=== PATIENT | male | born 1945 | race African-American/Black ===

== ENCOUNTER → 2016-10-22 | Outpatient (CLI) | payer OTHER, MEDICARE ==
[~2016-10-22] VITALS: Ht 180.3 cm; Wt 85.1 kg
[~2016-10-22] MED LIST: ALEVE220 MG PO; ANTIVERT25 MG PO; APAP650 PO; ASPIR 8181 MG PO; ASPIRIN81 M2 PO; ATORVASTATIN CA40 MG PO; CARVEDILOL12.5 MG PO; CLONAZEPAM 0.50.5 M1 PO; COREG CR40 MG PO; DICLOFENAC SODI75 MG PO; FIBER500 MG PO; FISH OIL 1,0001 EAC5 PO; FISH OIL 1,001000 M2 PO; GRALISE600 MG PO; HYDROCODON-ACE1 EAC5 PO; HYDROCODON-ACE1 EAC7; HYDROCODONE-AP1 EAC6 PO; LISINOPRIL20 MG PO; MOBIC7.5 MG PO; NABUMETONE 500500 M1 PO; PERCOCET 10-321 EACH PO; ROXICODONE5 MG PO; SIMVASTATIN40 MG PO; TAMSULOSIN HCL0.4 M1 PO; VALIUM10 MG PO; VALIUM2 MG PO; VITAMIN D3400 UNIT PO; XARELTO20 MG PO; [UNRECOGNIZED DRUG - REMARK]
--- NOTE | ~2016-10-22 | HPC ---
[facility] [place] [address] PAIN MANAGEMENT CONSULTATION Name: ALEC REDDY Room #: REG [facility].#: [id number] Admission: 10/22/16 Attend Phys: Darren Noonan DO Discharge: Date of : 47 Report #: [id number] THIS REPORT FOR: //name// CC: Darren Harris DO DATE OF SERVICE: 10/22/2016 DATE OF SERVICE: 10/22/2016 CHIEF COMPLAINT: Bilateral chronic groin pain. HISTORY OF PRESENT ILLNESS: As you know, patient is a very pleasant 71-year-old male, who has returned today in followup visit with continued bilateral groin pain. The patient has an appointment with Neurology today for which they are going to review an MRI. This MRI is unavailable to us at this time. We have attempted to try to gain access to this MRI, but have been advised is not available. The patient is placing pain score at 2/10. States the pain is chronic in nature. He is experiencing some numbness in the bilateral groin. His pain is exacerbated with activities, improves with medications, sleeping with pillow between his knees. Otherwise, no change in his medical history today. He returns today in followup visit for medication management in preparation for possible more aggressive treatments depending on the findings on the MRI. ALLERGIES: No known drug allergies. CURRENT MEDICATIONS: Hydrocodone, Tylenol, omega-3 fish oil, Xarelto, atorvastatin, carvedilol, cholecalciferol, lisinopril. SOCIAL HISTORY: The patient denies tobacco, alcohol or IV illicit drug use. He is accompanied by his , who is present here in the room. PHYSICAL EXAMINATION: VITAL SIGNS: Blood pressure 123/79, pulse 81, respiratory rate 16, unlabored, 98% on room air. Height 5 feet 11 inches tall, weight 197.6 pounds, BMI calculated 26.2. GENERAL: Well developed, well nourished, well hydrated, 71-year-old male. He appears stated age, placing current pain score 2/10. HEENT: Normocephalic, atraumatic. Pupils equal, round, reactive to light. Extraocular muscles are intact. Sclerae nonicteric without injection. NEUROLOGIC: Cranial nerves 2-12 grossly intact. LUNGS: Clear. No wheeze, rhonchi or rales. CARDIOVASCULAR: Regular. No appreciable gallop or rub. ABDOMEN: Soft, nontender, nondistended, normoactive bowel sounds. [facility] [address] [place] [address] PAIN MANAGEMENT CONSULTATION Name: ALEC REDDY Room #: REG [facility]#: [id number] Admission: 10/22/16 Attend Phys: Darren Noonan DO Discharge: Date of : 47 Report #: [id number] EXTREMITIES: Show no clubbing, no cyanosis, no edema. MUSCULOSKELETAL: There again remains palpatory tenderness over the pubic symphysis and distribution of the ilioinguinal genitofemoral nerves bilaterally. Seated straight leg raising negative. Supine straight leg raising positive for right groin pain. Gait slightly antalgic. Patient is forward flexed lumbar spine in standing position, loss of lordotic curvature. ASSESSMENT: 1. Chronic bilateral pelvic pain. 2. Bilateral inguinal pain. 3. Iliohypogastric neuralgia. 4. Genitofemoral neuralgia. 5. Probable lumbar spinal stenosis. PLAN: 1. The patient has returned today in followup visit where we have discussed at length the ongoing pain he is experiencing. It appears that the patient is suffering from bilateral inguinal paresthesias. Possibility would be that the patient is suffering from a spinal stenosis in the upper lumbar lower thoracic area that is leading to his symptoms. At present, we do not have the recent MRI. Apparently, this was done recently, but we are unable to access this MRI information at this time. The patient does have an appointment with his neurologist today for which they are going to review the findings. We will hopefully see these findings soon and we can also review the information. I am concerned of a spinal stenosis in the upper lumbar region that may have led the symptoms. There is also a possibility of bilateral inguinal pain due to pelvic unleveling. This may also be assessed with this imaging study. I will await the findings of the MRI before moving forward with interventional treatments such as epidural injections and surgical options. 2. The patient was provided refill prescription of his oxycodone. He does find this helpful for pain control. He was given #5 mg tablets 1 to take every 8 hours p.r.n. for pain, I have given the patient #60, 1 month worth of medication. 3. The patient was provided samples of Gralise. He will start the medication at 600 mg as he is currently on with gabapentin, then escalate as tolerated to higher levels depending on efficacy. The patient was advised that this medication can cause similar side effects, as he is seen with the immediate release gabapentin, sleepiness, disorientation, confusion. If he notes these side effects, contact our clinic. Otherwise, continue the titration as directed. We have provided the Gralise in response to the side effects he was experiencing with the immediate release formulation of gabapentin. We are hopeful he can tolerate this medication more effectively and reduce his neuropathic pain. 4. We will see the patient back in followup visit once he has had a chance to discuss his case with neurology. We will review the findings of the MRI once they are available and contact the clinic if changes in therapy are warranted. [facility] [address] [place] [address] PAIN MANAGEMENT CONSULTATION Name: BARRYALEC Philomena MOREIRA Room #: REG [facility].#: [id number] Admission: 10/22/16 Attend Phys: Darren Noonan DO Discharge: Date of : 47 Report #: [id number] 5. We will see the patient back in followup visit within 30 days, as we will need to continue medication therapy and discussed his treatment options at that juncture. <ELECTRONICALLY SIGNED> By: Darren Noonan DO 10/29/16 0832 0651 0735 Darren Noonan DO /nt
[2016-10-22 08:59] VITALS: BP 123/79
== END | disposition home or self-care (01) ==
LOC: PAIN 10-07 07:11
DX: R10.2 Pelvic and perineal pain (principal); G58.8 Other specified mononeuropathies; G89.29 Other chronic pain; Z87.891 Personal history of nicotine dependence

== ENCOUNTER → 2016-11-04 | Outpatient (CLI) | payer OTHER, MEDICARE ==
[~2016-11-04] VITALS: Ht 180.3 cm; Wt 85.5 kg
--- NOTE | ~2016-11-04 | HPC ---
[facility] [place] [address] PAIN MANAGEMENT CONSULTATION Name: ALEC REDDY JR [id number] Admission: 11/04/16 Attend Phys: Darren Noonan DO Discharge: Date of : 47 Report #: [id number] THIS REPORT FOR: //name// CC: Darren Harris DATE OF SERVICE: 11/04/2016 CHIEF COMPLAINT: Bilateral chronic groin pain, anterior thigh pain. HISTORY OF PRESENT ILLNESS: As you know, patient is a 71-year-old male who returns today in followup visit having received MRI of lumbar spine with his neurologist. Neurology has indicated to the patient that treatment options or surgery or "living with it." No options were provided from a medication standpoint. He returns today in followup visit stating he has also seen orthopedic surgery who advised the patient that his arthritic changes in the hips are "not that severe." They suggested possible injections, though they were not too concerned with the amount of arthritic changes that were present on the x-ray. He returns today in followup visit continuing to discuss some allodynia and neuropathic pain not only involving the inguinal area, but also the anterior thighs. We reviewed the MRI with the patient and the findings are such that the patient is suffering from severe spinal stenosis at L2-L3 level, which could correlate with the patient's findings on physical exam and history he has provided. We had discussed with the patient the treatment options in the past. He returns to discuss these again today. The findings of the MRI have assisted us in directing our treatment more effectively. ALLERGIES: No known drug allergies. CURRENT MEDICATIONS: Hydrocodone, Tylenol, [place] 3 fish oil, Xarelto, atorvastatin, carvedilol, cholecalciferol, lisinopril. SOCIAL HISTORY: The patient denies tobacco, alcohol or IV illicit drug use. He is retired. He is present with his . IMAGING: MRI of the lumbar spine obtained on 10/16/2016 shows T12-L1 unremarkable L1-L2, no significant central canal stenosis, mild bilateral foraminal stenosis L2-L3. Moderate prospect broad-based disk bulge posterior osteophyte complex, bilateral uncovertebral and facet hypertrophy, ligamentum flavum hypertrophy resulting in severe spinal stenosis. Moderate bilateral neural foraminal stenosis L3-L4, mild broad-based disk bulge, bilateral facet arthrosis, ligamentum flavum hypertrophy, moderate central canal stenosis, moderate bilateral foraminal stenosis L4-L5, moderate bilateral uncovertebral and facet arthrosis, ligamentum flavum hypertrophy, mild spinal canal stenosis, moderate bilateral neural foraminal stenosis. L5-S1, mild changes of the ligamentum flavum and arthritis [place] [address] PAIN MANAGEMENT CONSULTATION Name: ALEC REDDY JR Room #: REG [facility]#: [id number] Admission: 11/04/16 Attend Phys: Darren Noonan DO Discharge: Date of : 47 Report #: [id number] PHYSICAL EXAMINATION: VITAL SIGNS: Blood pressure 109/76, pulse is 80, respiratory rate 14, unlabored, patient 99% on room air. Height 5 feet 11 inches tall, weighs 188.4 pounds. BMI calculated 36.8. GENERAL: Well developed, well nourished, well hydrated 71-year-old male appearing his stated age. He is placing current pain score 3/10. HEENT: Normocephalic, atraumatic. Pupils equal, round, reactive to light. Extraocular muscles are intact. Sclerae nonicteric, without injection. EXTREMITIES: Show no clubbing, no cyanosis, no edema. MUSCULOSKELETAL: Palpatory tenderness over the pubic symphysis and distribution of the ilioinguinal and genitofemoral nerves noted. Seated straight leg raising negative. Supine straight leg raising positive for right groin pain. Gait is antalgic, stance is highly forward flexed to the lumbar spine, loss of lordotic curvature. Muscle bulk and tone equal and symmetrical in the lower extremities. Pain is not elicited with standing. ASSESSMENT: 1. Symptomatic lumbar radiculopathy. 2. Spinal stenosis of the lumbar spine. 3. Displacement of lumbar intervertebral disk with radiculopathy. 4. Lumbosacral spondylosis with radiculopathy. 5. Degeneration of lumbar spine. 6. Ilioinguinal, iliohypogastric nerve neuralgia. 7. Chronic intractable pain. PLAN: 1. The patient has returned today in followup visit having seen Neurology as well as Orthopedics since our last visit. Orthopedics have taken x-rays of the bilateral hips and noticed some mild changes in the joints themselves, but no specific clear etiology for his pain. It was noted that the patient suffers no increase in pain with standing and weightbearing, which would correlate more with a low back problem and less with an arthritic joint problem. There is a possibility he is suffering from bilateral labral tears, though this would be extremely rare given the fact the patient has not had any hip injuries and the hips shows little or no arthritic changes. They have offered the possibility of injections into the joints, but were not specific on whether or not these would be helpful. In regards to the Neurology team, they have evaluated the patient, indicated that no specific treatment that they hand would decrease the patient's pain. They did indicate to the patient that surgery options may be available, but did not offer any idea of who might be able to handle that surgery and what kind of surgery. Other options were "to live with it." The patient returns today in followup visit to discuss some of the findings that we had seen on MRI. Our concern is that his symptoms are related to his spinal stenosis at the L2-L3 level. This would correlate with his pain distribution though unusual would not be something that could not be seen with a stenosis at the level he is [facility] [address] [place] [address] PAIN MANAGEMENT CONSULTATION Name: ALEC REDDY JR Room #: [facility].#: [id number] Admission: 11/04/16 Attend Phys: Darren Noonan DO Discharge: Date of : 47 Report #: [id number] currently experiencing symptoms at. We also discussed the possibility of intraarticular hip pathology, though this is fairly low on our differential. It is interesting to note that the patient did report good improvement in symptoms with gabapentin, which would indicate more of a neuropathic problem than with arthritic problem. After our very long discussion, the patient and I chose to trial once again an epidural injection under fluoroscopic guidance, this being placed at the level of stenosis. We discussed with the patient the risks and benefits of the procedure. He states he understood and wished to proceed. 2. The patient is to remain on his GRALISE therapy. We have given him samples of the GRALISE to continue for the next two weeks, this will allow us a chance to review efficacy of an injection placed at the stenosis positioning. 3. The patient will return to our clinic in 2 weeks. We will review efficacy of medications and the injection today and determine if options from surgical standpoint or even a spinal cord stimulator may be beneficial. PROCEDURE NOTE DESCRIPTION OF PROCEDURE: Lumbar epidural steroid injection under fluoroscopic guidance. After obtaining written consent, the patient was taken back to fluoroscopy suite, placed in prone position with pillow under abdomen to decrease lumbar lordosis. Skin overlying the lumbosacral area prepped and draped in aseptic fashion. The L3-L4 interspace was identified by AP fluoroscopy. Skin and subcutaneous tissue overlying the target site of injection was then anesthetized with 3 mL of 1% lidocaine. A 20-gauge 3-1/2 inch Tuohy needle was advanced under fluoroscopic guidance towards the epidural space using a paramedian approach. Epidural space was identified using loss of resistance to air technique. After negative aspiration for heme or cerebrospinal fluid, 1 mL of Omnipaque was injected. Lumbar epidurogram was confirmed using both AP and lateral fluoroscopy. After negative aspiration for heme or cerebrospinal fluid, 5 mL of a solution containing 2 mL 40 mg per mL, 80 mg total of triamcinolone, 3 mL lidocaine 1% injected slowly. Needle retracted approximately senior care, needle tract flushed 3 mL 1% lidocaine. Needle then removed. Sterile bandage placed over injection site. No new motor deficits present in lower extremity following procedure. The patient tolerated the procedure well, carefully escorted to recovery room in stable condition. No apparent complications. After meeting discharge criteria, the patient discharged home. [address] [address] PAIN MANAGEMENT CONSULTATION Name: ALEC REDDY JR Room #: REG [facility]#: [id number] Admission: 11/04/16 Attend Phys: Darren Noonan DO Discharge: Date of : 47 Report #: [id number] cc: Referring Physician <ELECTRONICALLY SIGNED> By: Darren Noonan DO 11/05/16 0743 1519 1636 Darren Noonan DO /nt
[2016-11-04 12:55] VITALS: BP 109/76
== END ==
LOC: PAIN 07:25
DX: M47.27 Other spondylosis with radiculopathy, lumbosacral region (principal); M48.06 Spinal stenosis, lumbar region; M51.16 Intervertebral disc disorders with radiculopathy, lumbar region; G89.29 Other chronic pain; I10 Essential (primary) hypertension; Z87.891 Personal history of nicotine dependence

== ENCOUNTER → 2017-01-21 | Outpatient (CLI) | payer OTHER, MEDICARE ==
[~2017-01-21] VITALS: Ht 180.3 cm; Wt 83.9 kg
[~2017-01-21] MED LIST changes: +KEFLEX500 MG PO; +RESTORIL15 MG PO
--- NOTE | ~2017-01-21 | HPC ---
[facility] [place] [address] PAIN MANAGEMENT CONSULTATION Name: BARRYALEC Quach Room #: REG [facility].#: [id number] Admission: 01/21/17 Attend Phys: Darren Noonan DO Discharge: Date of : 47 Report #: [id number] THIS REPORT FOR: //name// CC: Darren Harris DO DATE OF SERVICE: 01/21/2017 REFERRING PHYSICIAN: Dr. Garth Harris. CHIEF COMPLAINT: Chronic bilateral groin pain, right inguinal pain, and anterior thigh pain. HISTORY OF PRESENT ILLNESS: As you know, the patient is an extremely pleasant 71-year-old male with longstanding history of bilateral groin pain, right inguinal mass, and anterior thigh pain. The patient has been diagnosed with bilateral sports hernias for which he is planning to undergo surgery with Dr. Hector Castellanos. Unfortunately, during the evaluation for this surgery, it was found the patient also had an abscess in the perineal area. He has begun treatment for this abscess, and this needs to be resolved before he can move forward with the treatment for his bilateral sports hernias. He returns today in followup visit reporting a pain score of 4/10. States his pain is sore, spasming, and burning, exacerbated with walking, standing, bending, lifting, and sitting, improves with repositioning and medications. He has returned today for medication management until which time, he is able to undergo the proposed surgery. ALLERGIES: No known drug allergies. CURRENT MEDICATIONS: Temazepam, cephalexin, diazepam, oxycodone, gabapentin, omega 3 fish oil, Xarelto, atorvastatin, carvedilol, cholecalciferol, and lisinopril. SOCIAL HISTORY: The patient denies tobacco, alcohol, IV or illicit drug use. He is accompanied by his . He is retired. He is not in litigation in regards to pain. PHYSICAL EXAMINATION: VITAL SIGNS: Blood pressure 114/68, pulse 69, respiratory rate 16, unlabored. The patient is 100% on room air. Height 5 feet 11 inches tall, weight 185 pounds, BMI calculated 25.8. GENERAL: Well-developed, well-nourished, and well-hydrated. A 71-year-old male appearing his stated age, placing current pain score at 4/10. HEENT: Normocephalic and atraumatic. Pupils are equal, round, [place] [address] PAIN MANAGEMENT CONSULTATION Name: BARRYALEC Room #: REG [facility]#: [id number] Admission: 01/21/17 Attend Phys: Darren Noonan DO Discharge: Date of : 47 Report #: [id number] EXTREMITIES: Show no clubbing, no cyanosis, no edema. MUSCULOSKELETAL: Palpatory tenderness remains over the inguinal area, directly over the pubic bone. Deep palpation of the area causes intensification of pain. There is a noted right inguinal "mass". This is unchanged from previous evaluation. The patient has a forward flexed stance of the lumbar spine due to increasing pain. ASSESSMENT: 1. Bilateral sports hernia. 2. Severe spinal stenosis of the lumbar spine. 3. Chronic intractable pain. 4. Perineal abscess. PLAN: 1. The patient has returned today in followup visit indicating he has been evaluated by surgery for his bilateral sports hernias. Unfortunately, the patient cannot undergo the treatment for his bilateral sports hernia until which time his abscess that was found incidentally in the perineal area has resolved. He has been started on antibiotics, and they are packing the recently lanced abscess. The patient reports pain in the perineal area, but this is beginning to improve. The patient will have to complete treatment for his abscess before we can move forward with surgical options for the bilateral sports hernia. This is being monitored by his general surgeon, Dr. Hector Castellanos. He has returned today in followup visit requesting medication management, as we await surgical option. 2. The patient was provided a prescription of Percocet 10/325. He may have one tab every 3 hours p.r.n. for pain. He was given #180 with releases of today and 4 weeks from today. The patient was advised to take this medication only as directed, not to use more than 6 tablets in any given day. We will reduce these medications once he has undergone surgery for his bilateral hernias, and then wean off the opioids entirely as quickly as possible. 3. We will see the patient back in followup visit in 2 months, if he has not yet undergone surgery. Otherwise, we will see him post-surgery where we can help wean off opioids as tolerated. <ELECTRONICALLY SIGNED> By: Darren Noonan DO 01/27/17 1602 0712 1150 Darren Noonan DO /nt
[2017-01-21 09:54] VITALS: BP 114/68
== END ==
LOC: PAIN 07:31
DX: K40.90 Unilateral inguinal hernia, without obstruction or gangrene, not specified as recurrent (principal); M48.06 Spinal stenosis, lumbar region; L02.215 Cutaneous abscess of perineum; G89.29 Other chronic pain

== ENCOUNTER 2017-01-29 16:41 | Inpatient (IN) | payer OTHER, MEDICARE ==
[~2017-01-29] VITALS: Ht 180.3 cm; Wt 82.3 kg
--- NOTE | ~2017-01-29 | O ---
[facility] [place] [address] OPERATIVE REPORT Name: ALEC REDDY JR Room #: 424-P ADM IN M.R.#: [id number] Admission: 01/29/17 Attend Phys: Richard Chapa MD Discharge: Date of : 47 Report #: [id number] THIS REPORT FOR: //name// CC: Richard Hopsonore Harris DATE OF SERVICE: 01/31/2017 PREOPERATIVE DIAGNOSIS: Right mons, groins, scrotal abscess. POSTOPERATIVE DIAGNOSIS: Right mons, groins, scrotal abscess. OPERATIVE PROCEDURE: Incision and drainage with debridement of right mons, groin, scrotal abscess. SURGEON: Keon Park MD PUMPING SUPERVISOR: Shayne Garnica MS3 INDICATIONS: A 71-year-old male who has developed in the last 5-7 days progressive scrotal edema, swelling and pain, which has an outpatient procedure in the office, had a drainage procedure performed. The fluid has accumulated again with purulent drainage. A CT scan of the pelvis demonstrated a 5 x 6 cm fluid collection in the mons pubis area. This requires drainage in the operating room under general anesthesia. OPERATIVE PROCEDURE: The patient had thorough discussion of procedure, benefits and risks. He gave informed consent to proceed. He was brought to the operating room suite and had satisfactory induction of general laryngeal mask anesthesia. The patient was well positioned in bed. He was frog legged with his right leg and was appropriately propped up and held in place. Betadine paint was performed, draping was completed, and appropriate timeout was then performed. The skin bridge between the previous 3 cm transverse mons incision and the small incision on the lateral aspect of the scrotum, which was oozing purulent drainage. The skin bridge was opened sharply with knife. Finger dissection was performed to further control the cord structures and the subcutaneous tissue medial to the cord was also opened and irrigated. Some necrotic debris tissue was sent for pathological evaluation. Copious irrigation with saline solution was performed. Half inch plain gauze soaked with Naropin 0.5% was then packed tightly into the open wound. Hemostasis had been achieved with electrocautery. Estimated blood loss less than 5 mL. The patient [address] [address] OPERATIVE REPORT Name: BARRYALEC Philomena Room #: 424-P [facility] IN M.R.#: [id number] Admission: 01/29/17 Attend Phys: Richard Chapa MD Discharge: Date of : 47 Report #: [id number] tolerated the procedure well and returned to the recovery room in stable and satisfactory condition. <ELECTRONICALLY SIGNED> By: Keon Park MD, FACS 02/01/17 1357 1838 2324 Keon Park MD, FACS /nt
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
--- NOTE | ~2017-01-29 | HC ---
[facility] [address] CONSULTATION Name: ALEC REDDY Room #: 544-P [facility] IN M.R.#: [id number] Admission: 01/29/17 Attend Phys: Richard Chapa MD Discharge: 02/04/17 Date of : 49 Report #: [id number] THIS REPORT FOR: //name// CC: Richard Harris CHIEF COMPLAINT: Scrotal abscess. HISTORY OF PRESENT ILLNESS: The patient is a very pleasant 71-year-old gentleman who is being seen today at the request of Dr. Chapa for evaluation and management of a draining scrotal abscess. He was sent to the ER. He was admitted to the hospital yesterday after a culture revealed Pseudomonas and Klebsiella from scrotal groin abscess. Apparently, this bacteria is resistant to oral antibiotics and he is admitted for IV antibiotics. The abscess was drained and now was drained by Dr. Farfan on the 01/19/2017. ALLERGIES: None. MEDICATIONS: Valium 10 mg t.i.d., oxycodone/acetaminophen 10/325 every 3 hours p.r.n. pain, lisinopril 20 mg daily, vitamin D3 2000 units daily, Lipitor 40 mg daily, Xarelto 20 mg daily, fish oil 1000 mg daily, gabapentin 600 mg daily, temazepam 15 mg at bedtime, he had been on Keflex. PAST MEDICAL HISTORY: Illnesses, coronary artery disease, BPH, hypertension, hyperlipidemia, atrial flutter. SURGERIES: Coronary artery bypass graft in 2007, carpal tunnel in both hands. Transurethral surgery for bladder surgery and prostate surgery. SOCIAL HISTORY: He does drink alcohol, but not quantify. He is a former smoker. REVIEW OF SYSTEMS: He denies shortness of breath or chest pain. PHYSICAL EXAMINATION: GENERAL: He is a comfortable appearing gentleman, sitting up in bed. VITAL SIGNS: Temperature is 37.1, blood pressure 107/62, pulse 68, respirations 20. ABDOMEN: Soft, without mass. GENITOURINARY: He has normal phallus, on the right side of the scrotum is an abscess, which is packed. He has some induration, but there is no fluctuance. There appears to be no extension into the and to the lower abdomen. LABORATORY DATA: White cell count 8.8 thousand, hemoglobin 10.6, hematocrit 31.1, platelets 251,000. Sodium 135, potassium 4.0, chloride 99, CO2 31, BUN 23, creatinine 1.2. [address] [address] CONSULTATION Name: ALEC REDDY Room #: 544-P [facility] IN M.R.#: [id number] Admission: 01/29/17 Attend Phys: Richard Chapa MD Discharge: 02/04/17 Date of : 49 Report #: [id number] IMPRESSION: Right groin/scrotal abscess with resistant bacteria. PLAN: I will forward the culture results to the floor to assist in management. I agree with Infectious Disease. Infectious Disease evaluation. No further surgical intervention is indicated. <ELECTRONICALLY SIGNED> By: Deni Sunshine MD 02/05/17 0737 0636 0731 Deni Sunshine MD /nt
--- NOTE | ~2017-01-29 | EKG ---
[address] [place] [employer] [address] ELECTROCARDIOGRAM REPORT Name: BARRYALEC Quach Room #: 544-[facility] IN M.R.#: [id number] Admission: 01/29/17 Attend Phys: Richard Chapa MD Discharge: 02/04/17 Date of : 47 Report #: [id number] THIS REPORT FOR: //name// [facility] Test Date: 2017-02-04 Test Time: 10:05:26 Pat Name: ALEC REDDY Department: Room: 544 Gender: M Flight Coordinator: Thi REYES : 1945 Requested By: Erik Purcell Order Number: [id number] MD: Phil Carr Measurements Intervals [place] Rate: 79 P: 67 WI: 171 QRS: -12 QRSD: 111 T: 65 QT: 395 QTc: 453 Interpretive Statements Sinus rhythm No significant abnormality Compared to ECG 08/03/2016 19:22:45 anteroseptal repolarization abnormality less prominent Electronically Signed On 02-05-2017 8:45:19 CDT by Phil Carr [email or web address] <ELECTRONICALLY SIGNED> By: Phil Carr MD, [facility] 02/05/17 0845 1005 1005 Phil Carr MD, [facility] /EPI
--- NOTE | ~2017-01-29 | S ---
[facility] [place] [address] SURGICAL PATH RPT PROCEDURE Name: PHILLIP REDDY JR Room #: 424-P ADM IN M.R.#: [id number] Admission: 01/29/17 Date of : 49 Discharge: Report #: [id number] Path Case #: [id number] PATHOLOGY REPORT COLLECTION DATE: 01/31/2017 RECEIVED DATE: 02/02/2017 SUBMITTING PHYS: Dr. Keon Park OTHER PHYS: Dr. Garth Ramos SPECIMEN(S) RECEIVED: A.Necrotic debridement tissue right mons pubis, groin, scrotal abcess * * * * * * * * * * * * FINAL DIAGNOSIS: Soft tissue, "necrotic debridement tissue: - Acute abscess with necrotic acute inflammatory exudate surrounded by exuberant granulation tissue. (see comment) COMMENT: This case is also reviewed by Dr. Nadine Brothers. ([facility]:mgr; d/t: 02/03/17) PATHOLOGIST: Aric Serrano M.D. REPORT ELECTRONICALLY SIGNED BY: Aric Serrano M.D. DATE/TIME: 02/03/2017 14:25 * * * * * * * * * * * * GROSS PATHOLOGY: The specimen is received in formalin labeled "Phillip Reddy Jr., necrotic debridement tissue". Received is dusky gamble-rubio soft tissue measuring 2.3 x 1.4 x 1.2 cm in greatest dimensions. The specimen is submitted representatively in cassette A1. ([facility]; 02/02/2017) CLINICAL HISTORY: Right groin, mons pubis and scrotal abscess INITIAL CPT CODE(S): A; 17229 Professional services performed by [facility] at [facility] [address] [facility] , [place] [address] Technical services performed by [facility] at [address] [place] [address] [place] [address] SURGICAL PATH RPT PROCEDURE Name: PHILLIP REDDY Room #: 424-P ADM IN .R.#: [id number] Admission: 01/29/17 Date of : 49 Discharge: Report #: [id number] Path Case #: [id number] [place] [address]. [facility] [address] [place] [address] PHONE: [phone] DIRECTOR: Portillo Thomas M.D. * * * END OF REPORT * * *
--- NOTE | ~2017-01-29 | HC ---
[facility] [place] [address] CONSULTATION Name: ALEC REDDY Room #: 424-P ADM IN M.R.#: [id number] Admission: 01/29/17 Attend Phys: Richard Chapa MD Discharge: Date of : 49 Report #: [id number] THIS REPORT FOR: //name// CC: Richard Harris DATE OF SERVICE: 01/30/2017 CHIEF COMPLAINT: Right groin suprapubic abscess. HISTORY OF PRESENT ILLNESS: This is a pleasant black male who has had a fairly chronic pain in the suprapubic and inguinal region for the past several months. The patient was initially diagnosed with back pain and was treated for this without much relief. The patient most recently was seen in November and had a CAT scan, which noted hernias, small bilateral inguinal hernias. The patient had progressive pain in his right suprapubic and inguinal region. Subsequently, was referred to Dr. Farfan who performed an incision and drainage in his office. However, the patient was started on Levaquin and had persistent swelling and pain, which prompted him to come back to the hospital to be admitted for further evaluation and further drainage. The patient denies fevers, chills or sweats. The patient denies any dysuria, urgency or frequency. The patient denies any other recent illnesses or concerns. The patient states he has never had any other wounds. He could not heal on his own. PAST MEDICAL HISTORY: The patient states he otherwise is fairly healthy. Significant for coronary artery bypass grafting, carpal tunnel, transurethral resection of the prostate, hypertension, hyperlipidemia, atrial flutter with SVT status post ablation. CURRENT MEDICATIONS: Include IV antibiotics, which I reviewed in the patient's medication list. DRUG ALLERGIES: None. SOCIAL HISTORY: The patient had a history of smoking remotely, does not smoke now, does not drink alcohol. FAMILY HISTORY: Not pertinent to current medical condition. REVIEW OF SYSTEMS: CONSTITUTIONAL: The patient denies fevers or chills. NEUROLOGIC: The patient complains of mild generalized weakness, but no isolated weakness in arms or legs. EYES: No complaints. ENT: No complaints. CARDIAC: The patient denies chest pain, palpitations or peripheral edema. [address] [address] CONSULTATION Name: ALEC REDDY Room #: 424-P [facility] IN .R.#: [id number] Admission: 01/29/17 Attend Phys: Richard Chapa MD Discharge: Date of : 49 Report #: [id number] RESPIRATORY: The patient denies shortness of breath, cough, wheezes. GASTROINTESTINAL: The patient denies nausea, vomiting. Does have mild abdominal pain mainly in the lower quadrants, but no vomiting or diarrhea. GENITOURINARY: The patient complains of pain in his suprapubic and right inguinal region, but no urgency, frequency, or hematuria. MUSCULOSKELETAL: No complaints. SKIN: Surgical wounds in the right groin. PHYSICAL EXAMINATION: VITAL SIGNS: Stable. The patient is afebrile. GENERAL: Alert and oriented x 3, pleasant black male who is in [id number] distress secondary to pain. HEENT: Normocephalic, atraumatic. Mucous membranes are somewhat dry. Pupils are round. Sclerae white. NECK: Shows no JVD or masses. LUNGS: Clear. HEART: Regular without murmur. ABDOMEN: Soft, nontender. Evaluation of the right inguinal region reveals what appears to be a superficial incision around the superficial groins over the pubic symphysis, which has no depth, but is exquisitely tender and somewhat fluctuant. There is no drainage. Just below this is an open wound, which has a depth of approximately 3 cm. It is clean and granulating without significant tenderness unless you push superiorly towards the other previous incisional site and then patient does have exquisite tenderness, bilateral testicles are intact without swelling or tenderness. EXTREMITIES: The patient moves all extremities without difficulty. NEUROLOGIC: Cranial nerves 2-12 are grossly intact. Motor and sensory grossly intact. LABORATORY DATA: White count 8.8, hemoglobin 10.6, albumin is 3.4. WOUND CARE COURSE: I spoke at length with the patient at this point in time, we will start patient on morphine, Silvadene, loose packing into the lower scrotal wound. It appears, the patient most likely is going to need further incision and drainage of the more superior wound. General Surgery has been consulted to see the patient. ASSESSMENT AND PLAN: 1. Scrotal wound status post incision and drainage, scrotal abscess. 2. Concern for persistent superior scrotal/suprapubic abscess. 3. Hypertension. 4. History of coronary artery disease. PLAN: Described at length as above. We will need a loose packing with morphine, Silvadene compound at this time pending further surgical evaluation. [address] [place] [address] CONSULTATION Name: ALEC REDDY JR Room #: 424-P ADM IN M.R.#: [id number] Admission: 01/29/17 Attend Phys: Richard Chapa MD Discharge: Date of : 49 Report #: [id number] We will make sure the patient is adequately supplying himself with extra protein for healing. We will continue to follow the patient while he is here. By: 1021 20 Toney Ruvalcaba MD /nt
[2017-01-29 16:41] VITALS: BP 90/60
[2017-01-29 17:33] LABS: HEMATOCRIT 33.9 % (42.0-52.0); HEMOGLOBIN 11.4 gm/dL (14.0-18.0); MANUAL DIFF YES; MCH 29.3 pg (26.0-34.0); MCHC 33.5 g/dL (28.0-37.0); MCV 87.5 fL (80.0-100.0); PLATELET COUNT 263 thou/uL (150-400); RBC 3.88 mil/uL (4.50-6.00); RDW 14.2 % (10.5-14.5); WBC 9.3 thou/uL (4.0-11.0)
[2017-01-29 17:39] LABS: CALCIUM 9.3 mg/dL (8.5-10.1); CREATININE 1.3 mg/dL (0.7-1.3); POTASSIUM 4.2 mmol/L (3.5-5.1)
[2017-01-29 17:44] LABS: ALBUMIN 3.4 g/dL (3.4-5.0); TOTAL BILIRUBIN 0.5 mg/dL (<0.1-1.0); TOTAL PROTEIN 7.1 g/dL (6.4-8.2)
[2017-01-29 17:59] LABS: TOTAL CELL COUNT 100
[2017-01-29 18:00] LABS: ABSOLUTE NEUTROPHILS 7.9 thou/uL (1.4-8.2)
[2017-01-29] MEDS ORDERED: MULTAQ 400 MG400 MG PO (18:27)
[2017-01-29] MEDS ORDERED: DEMADEX20 MG PO (18:28)
[2017-01-29] MEDS ORDERED: MIRALAX17 GM PO (18:28)
[2017-01-29 19:48] VITALS: BP 103/55
[2017-01-29 20:30] VITALS: BP 97/62
[2017-01-30 04:15] LABS: HEMATOCRIT 31.1 % (42.0-52.0); HEMOGLOBIN 10.6 gm/dL (14.0-18.0); MCH 29.5 pg (26.0-34.0); MCHC 34.1 g/dL (28.0-37.0); MCV 86.5 fL (80.0-100.0); RBC 3.59 mil/uL (4.50-6.00); RDW 13.9 % (10.5-14.5); WBC 8.8 thou/uL (4.0-11.0)
[2017-01-30 04:26] LABS: CALCIUM 8.9 mg/dL (8.5-10.1); CREATININE 1.2 mg/dL (0.7-1.3)
[2017-01-30 04:30] VITALS: BP 107/62
[2017-01-30 07:38] VITALS: BP 103/64
[2017-01-30 15:48] VITALS: BP 103/69
[2017-01-30 16:58] LABS: URINE BILIRUBIN NEGATIVE (Negative); URINE BLOOD NEGATIVE (Negative); URINE COLOR YELLOW; URINE GLUCOSE-RANDOM* NEGATIVE (Negative); URINE KETONES NEGATIVE (Negative); URINE LEUKOCYTES-REFLEX NEGATIVE (Negative); URINE PROTEIN (DIPSTICK) TRACE (Negative); URINE SPECIFIC GRAVITY 1.015 (1.003-1.035)
[2017-01-30 19:53] VITALS: BP 108/71
[2017-01-31 03:50] VITALS: BP 104/66
[2017-01-31 04:21] LABS: HEMATOCRIT 32.3 % (42.0-52.0); HEMOGLOBIN 10.9 gm/dL (14.0-18.0); MCH 29.6 pg (26.0-34.0); MCHC 33.9 g/dL (28.0-37.0); MCV 87.3 fL (80.0-100.0); PLATELET COUNT 249 thou/uL (150-400); RBC 3.69 mil/uL (4.50-6.00); WBC 9.6 thou/uL (4.0-11.0)
[2017-01-31 04:33] LABS: CALCIUM 9.1 mg/dL (8.5-10.1); CREATININE 0.9 mg/dL (0.7-1.3); POTASSIUM 4.5 mmol/L (3.5-5.1)
[2017-01-31 04:53] LABS: MANUAL DIFF YES
[2017-01-31 06:32] LABS: ABSOLUTE NEUTROPHILS 7.9 thou/uL (1.4-8.2); TOTAL CELL COUNT 100
[2017-01-31 06:33] LABS: ANISOCYTOSIS 1+
[2017-01-31 07:39] VITALS: BP 110/72
[2017-01-31 19:45] VITALS: BP 130/77
[2017-01-31 23:00] VITALS: BP 114/65
[2017-01-31 23:47] VITALS: BP 108/72
[2017-02-01 04:17] VITALS: BP 112/66
[2017-02-01 04:46] LABS: HEMATOCRIT 31.1 % (42.0-52.0); HEMOGLOBIN 10.5 gm/dL (14.0-18.0); MCH 29.3 pg (26.0-34.0); MCHC 33.7 g/dL (28.0-37.0); MCV 87.1 fL (80.0-100.0); RBC 3.57 mil/uL (4.50-6.00); RDW 13.9 % (10.5-14.5); WBC 9.1 thou/uL (4.0-11.0)
[2017-02-01 08:22] VITALS: BP 95/59
[2017-02-01 16:37] VITALS: BP 107/65
[2017-02-01 20:55] VITALS: BP 94/61
[2017-02-02 04:47] VITALS: BP 127/76
[2017-02-02 08:04] VITALS: BP 111/70
[2017-02-02 15:48] VITALS: BP 111/72
[2017-02-02 19:45] VITALS: BP 101/64
[2017-02-03 05:28] LABS: HEMATOCRIT 30.6 % (42.0-52.0); HEMOGLOBIN 10.3 gm/dL (14.0-18.0); MCH 29.4 pg (26.0-34.0); MCHC 33.8 g/dL (28.0-37.0); MCV 87.2 fL (80.0-100.0); RBC 3.51 mil/uL (4.50-6.00); RDW 13.7 % (10.5-14.5); WBC 8.2 thou/uL (4.0-11.0)
[2017-02-03 05:42] LABS: CREATININE 0.9 mg/dL (0.7-1.3); POTASSIUM 3.7 mmol/L (3.5-5.1)
[2017-02-03 08:19] VITALS: BP 123/78
[2017-02-03 11:00] VITALS: BP 113/67
[2017-02-03 15:04] VITALS: BP 112/70
[2017-02-03 20:45] VITALS: BP 103/62
[2017-02-04 04:00] VITALS: BP 90/56
[2017-02-04 06:44] LABS: HEMATOCRIT 29.6 % (42.0-52.0); MCH 29.6 pg (26.0-34.0); MCHC 33.8 g/dL (28.0-37.0); MCV 87.3 fL (80.0-100.0); RBC 3.38 mil/uL (4.50-6.00); RDW 13.8 % (10.5-14.5); WBC 7.4 thou/uL (4.0-11.0)
[2017-02-04 06:58] LABS: CALCIUM 8.8 mg/dL (8.5-10.1); CREATININE 0.9 mg/dL (0.7-1.3); POTASSIUM 3.8 mmol/L (3.5-5.1)
[2017-02-04 08:06] VITALS: BP 100/61
[2017-02-04] MEDS ORDERED: CIPRO500 MG PO (12:49)
[2017-02-04] MEDS ORDERED: FLAGYL500 MG PO (12:49)
[2017-02-04 13:59] VITALS: BP 100/61
[2017-02-04 16:54] VITALS: BP 100/61
[2017-02-04 17:01] VITALS: BP 100/61
== END 2017-02-04 18:20 | disposition home health service (06) | DRG 580 ==
LOC: ER 16:41 → EROBS 17:59 → 4E 17:59 → 5S 02-04 02:31
PROVIDERS: Family Medicine; Physician Assistant; Specialist; Surgery
PROC: 0J9C0ZX Drainage of Pelvic Region Subcutaneous Tissue and Fascia, Open Approach, Diagnostic (ICD-10-PCS; principal; 2017-01-31)
PROC: 0JDL3ZZ Extraction of Right Upper Leg Subcutaneous Tissue and Fascia, Percutaneous Approach (ICD-10-PCS; principal; 2017-01-31)
DX: L02.214 Cutaneous abscess of groin (principal); I48.92 Unspecified atrial flutter; K40.90 Unilateral inguinal hernia, without obstruction or gangrene, not specified as recurrent; B96.5 Pseudomonas (aeruginosa) (mallei) (pseudomallei) as the cause of diseases classified elsewhere; E86.0 Dehydration; I25.10 Atherosclerotic heart disease of native coronary artery without angina pectoris; N49.2 Inflammatory disorders of scrotum; I10 Essential (primary) hypertension; E78.5 Hyperlipidemia, unspecified; Z87.891 Personal history of nicotine dependence; Z95.1 Presence of aortocoronary bypass graft
CPT/HCPCS: 10084; 50010; 50101; 50386; 50403; 62110; 62900; 70005

== ENCOUNTER → 2017-02-19 | Outpatient (CLI) | payer OTHER, MEDICARE ==
[~2017-02-19] MED LIST changes: +CIPRO500 MG PO; +DEMADEX20 MG PO; +FLAGYL500 MG PO; +MIRALAX17 GM PO; +MULTAQ 400 MG400 MG PO
== END ==
LOC: HYPER 06:57
DX: T81.89XA Other complications of procedures, not elsewhere classified, initial encounter (principal); L02.214 Cutaneous abscess of groin; R60.9 Edema, unspecified; I10 Essential (primary) hypertension; E78.5 Hyperlipidemia, unspecified; I25.10 Atherosclerotic heart disease of native coronary artery without angina pectoris; I48.92 Unspecified atrial flutter; E78.00 Pure hypercholesterolemia, unspecified; I25.2 Old myocardial infarction; F41.9 Anxiety disorder, unspecified; Z95.1 Presence of aortocoronary bypass graft; Z72.89 Other problems related to lifestyle; Z68.27 Body mass index [BMI] 27.0-27.9, adult; Y83.8 Other surgical procedures as the cause of abnormal reaction of the patient, or of later complication, without mention of misadventure at the time of the procedure

== ENCOUNTER 2017-02-20 13:37 | Inpatient (IN) | payer OTHER, MEDICARE ==
[~2017-02-20] VITALS: Ht 180.3 cm; Wt 89.4 kg
--- NOTE | ~2017-02-20 | O ---
[place] [address] OPERATIVE REPORT Name: ALEC REDDY JR Room #: 405-P [facility] IN M.R.#: [id number] Admission: 02/20/17 Attend Phys: Chidi Garcia MD Discharge: Date of : 49 Report #: [id number] THIS REPORT FOR: //name// CC: Chidi Hopsonyoli Harris DATE OF SERVICE: 02/23/2017 OPERATIVE REPORT SURGEON: Hector Castellanos MD NOC ENGINEER: None. PREOPERATIVE DIAGNOSIS: Chronic draining right groin/mons wound. POSTOPERATIVE DIAGNOSES: Chronic draining right groin/mons wound. PROCEDURE: Excisional debridement of chronic draining right groin/mons wound including skin, subcutaneous tissue, and muscle (initial size 5 x 0.5 cm; post-debridement size 7 x 2 x 5 cm deep). ANESTHESIA: General endotracheal anesthesia and local anesthetic. ESTIMATED BLOOD LOSS: 10 mL. SPECIMEN: Right mons pubis tissue. COMPLICATIONS: None appreciated. INDICATIONS FOR PROCEDURE: This is a 71-year-old male patient known to me from previous evaluation for a groin and sports hernia repair, who was found to have a severely symptomatic right groin abscess. He underwent a bedside incision and drainage procedure by Urology in the outpatient setting, but had no significant improvement. He was admitted to the hospital and underwent further incision and drainage with dressing changes. He improved from this on antibiotics. After finishing his antibiotics, within 2 days, he developed worsening pain once again and when seen by the wound care physician, it was recommended that he be admitted for IV antibiotic therapy. The patient underwent imaging studies including CT of the abdomen and pelvis, which did not report further abscess; however, an ultrasound revealed this, and in correlation with a CT scan, there were felt to be loculations of fluid. The patient has had worsening of his leukocytosis and elevated temperature of 102 degrees Fahrenheit. The patient presents now for excisional debridement of the chronic draining wound. OPERATIVE FINDINGS: Measurements are as noted above. The drainage was not [address] [address] OPERATIVE REPORT Name: ALEC REDDY Room #: 405-P [facility] IN ..#: [id number] Admission: 02/20/17 Attend Phys: Chidi Garcia MD Discharge: Date of : 49 Report #: [id number] malodorous. Upon opening the wound further, caseating tissue was present, which was felt to potentially represent a chronic lymph node. All tissue that was removed was sent for specimen. The cavity did extend approximately 8 cm cephalad to caudad, 5-6 cm laterally and 5 cm deep. The muscle plane of the right thigh was opened slightly and no purulence was present; rather inflammatory fluid drained from the area. At the conclusion of the operation, sponge, needle, and instrument counts were correct. DESCRIPTION OF PROCEDURE IN DETAIL: After the benefits and risks of the procedure were explained to the patient, which included but not limited to risks of bleeding, infection, postoperative pain, postoperative expectations, informed consent was obtained. The patient was identified in the preoperative holding area. He was given IV antibiotics as documented in the chart in line with the SCIP protocol. He has been receiving scheduled IV antibiotics. The patient was then taken to the operating room. He was placed in the supine position. SCDs were placed on the patient's bilateral lower extremities and pneumatic compression was initiated. The patient was given IV sedation and a laryngeal mask was placed without difficulty. The patient was given general anesthesia. The patient's right groin was then prepped and draped in the standard sterile fashion with Betadine. A planned incision was drawn out with a marker. Local anesthetic was infiltrated into the skin and subcutaneous tissue. A sharp #10 blade scalpel was used to make an incision into the skin and subcutaneous tissue down to the caseating tissue. The tissue was incised. Tissue was removed deeper within the right groin. The pubic tubercle was palpable through the incision. All the caseating tissue was removed as much as possible in a piecemeal fashion. The dissection was carried into the right upper thigh muscular compartment. This area was opened slightly. The surrounding tissue was woody and indurated. No pus was present in the right superomedial thigh. The wound was copiously irrigated with normal saline with return of all drainage ended up clear after significant irrigation. Cautery was not required for hemostasis. After ensuring hemostasis, the wound was packed with 1:1 Betadine with normal saline on Kerlix gauze. 4 x 4s tape and mesh briefs were placed to hold the dressing in position. The patient tolerated the procedure well. He was awakened and the laryngeal mask was removed without difficulty. The patient was taken to recovery room in stable condition with no apparent intraoperative complications. <ELECTRONICALLY SIGNED> By: Hector Castellanos MD, FACS 02/24/17 0743 0112 0200 Hector Castellanos MD, FACS /nt
--- NOTE | ~2017-02-20 | S ---
[facility] [place] [address] SURGICAL PATH RPT PROCEDURE Name: PHILLIP REDDY JR Room #: 405-P ADM IN M.R.#: [id number] Admission: 02/20/17 Date of : 49 Discharge: Report #: [id number] Path Case #: [id number] PATHOLOGY REPORT COLLECTION DATE: 02/23/2017 RECEIVED DATE: 02/23/2017 SUBMITTING PHYS: Dr. Hector Castellanos OTHER PHYS: Dr. Chidi Harris SPECIMEN(S) RECEIVED: A.Right groin tissue * * * * * * * * * * * * FINAL DIAGNOSIS: Right groin wound tissue, debridement: - Bacterial aggregates, and fibrinopurulent material along with marked acute inflammation, consistent with wound tissue. (IUV:csd; d/t: 02/25/2017) PATHOLOGIST: Nadine Brothers M.D. REPORT ELECTRONICALLY SIGNED BY: Nadine Brothers M.D. DATE/TIME: 02/25/2017 16:36 * * * * * * * * * * * * GROSS PATHOLOGY: The specimen is received in formalin labeled "Phillip Reddy Jr., right groin tissue". Received are multiple segments of dusky yellow-rubio to gamble-rubio, necrotic-appearing soft tissue measuring 5.5 x 5.2 x 1.6 cm in aggregate dimensions. The specimen is submitted representatively in cassette A1. (CAA; 02/24/2017) CLINICAL HISTORY: Right groin wound INITIAL CPT CODE(S): A; 21201 Professional services performed by [facility] at [facility] [address], [place] [address] Technical services performed by [facility] at [address] [place] [address] [id number] [facility] [address] [place] [address] SURGICAL PATH RPT PROCEDURE Name: PHILLIP REDDY Room #: 405-P ADM IN .R.#: [id number] Admission: 02/20/17 Date of : 49 Discharge: Report #: [id number] Path Case #: [id number] [facility] [address] [address] PHONE: [phone] DIRECTOR: Portillo Thomas M.D. * * * END OF REPORT * * *
--- NOTE | ~2017-02-20 | HC ---
[facility] [place] [address] CONSULTATION Name: ALEC REDDY Room #: 405-P ADM IN M.R.#: [id number] Admission: 02/20/17 Attend Phys: Chidi Garcia MD Discharge: Date of : 49 Report #: [id number] THIS REPORT FOR: //name// CC: Chidi Harris CHIEF COMPLAINT: Mons pubic abscess. HISTORY OF PRESENT ILLNESS: The patient is a 71-year-old gentleman, well known to our service, specifically Dr. Farfan, when he presented to the emergency room for evaluation of a mons pubis abscess. The family called Dr. Farfan to attend though and he was being admitted to the hospital. His recent course is well documented. He recently had an incision and drainage of the mons pubic abscess by Dr. Park. ALLERGIES: None. MEDICATIONS: Diazepam 10 mg t.i.d. p.r.n., Percocet 10/325 every 3 hours p.r.n., Flagyl 500 mg t.i.d., Cipro 500 mg every 12 hours, Demadex 20 mg daily, Multaq 400 mg b.i.d., MiraLax 17 grams at bedtime p.r.n. constipation, Zestril 20 mg daily, vitamin D3 at 2000 units daily, Coreg 12.5 mg b.i.d., Lipitor 40 mg daily, Xarelto 20 mg daily, fish oil 1000 mg daily and Restoril 15 mg at bedtime. PAST MEDICAL HISTORY: Illnesses include coronary artery bypass grafting times 4, laser ablation of bladder stones, TURP, bilateral inguinal hernia in 12/05/2016 and mons pubic abscess drainage. SOCIAL HISTORY: . DICTATION ENDS HERE. <ELECTRONICALLY SIGNED> By: Deni Sunshine MD 02/22/17 0714 0950 1217 Deni Sunshine MD /nt
--- NOTE | ~2017-02-20 | 2DMMODE ---
[facility] [place] [address] 2 D/M-MODE ECHOCARDIOGRAM Name: ALEC REDDY Room #: 405-P [facility] IN .R.#: [id number] Admission: 02/20/17 Attend Phys: Chidi Garcia, Discharge: Date of : 49 Date of Service: 02/23/17 0920 Report #: [id number] THIS REPORT FOR: //name// APPROVED REPORT Study performed: 02/23/2017 08:28:42 EXAM: Comprehensive 2D, Doppler, and color-flow Echocardiogram Patient Location: Echo lab Room #: 405 Blood Pressure: 126/77 mmHg HR: 102 bpm Rhythm: Tachycardia/PVC's Other Information Study Quality: Adequate/Limited patient mobility Indications Leg swelling, possible chronic diastolic heart failure. Hx: CABG, Afib with ablation, HTN, HLP 2D Dimensions RVDd: 41.54 mm LVEF(%): 55.09 (>50%) IVSd: 14.21 (7-11mm) LVOT Diam: 24.72 (18-24mm) LVDd: 49.86 mm PWd: 14.12 (7-11mm) Ascending Ao: 36.74 (22-36mm) LVDs: 35.53 (25-40mm) Aortic Root: 40.12 mm Walters's LVEF: 55.09 % Volumes Left Atrial Volume (Systole) Single Plane 4CH: 57.16 mL Single Plane 2CH: 73.02 mL LA ESV Index: 36.00 mL/m2 Aortic Valve AoV Peak Deshawn.: 1.65 m/s AO Peak Gr.: 10.84 mmHg LVOT Max P.14 mmHg LVOT Max V: 1.59 m/s CARMEN Vmax: 4.64 cm2 Mitral Valve [facility] [place] [address] 2 D/M-MODE ECHOCARDIOGRAM Name: ALEC REDDY Room #: 405-P [facility] IN .R.#: [id number] Admission: 02/20/17 Attend Phys: Chidi Garcia, Discharge: Date of : 49 Date of Service: 02/23/17 0920 Report #: [id number] E/A Ratio: 1.9 MV Decel. Time: 149.52 ms MV E Max Deshawn.: 1.28 m/s MV A Deshawn.: 0.67 m/s MV PHT: 43.36 ms IVRT: 57.67 ms Pulmonary Valve PV Peak Deshawn.: 1.25 m/s PV Peak Gr.: 6.25 mmHg Tricuspid Valve TR Peak Deshawn.: 3.43 m/s RAP Estimate: 10.00 mmHg TR Peak Gr.: 47.14 mmHg RVSP: 57.00 mmHg Left Ventricle The left ventricle is normal size. There is normal LV segmental wall motion. Mild concentric left ventricular hypertrophy. Left ventricular systolic function is normal. LVEF is 55%. Grade II - pseudonormal filling dynamics. Right Ventricle The right ventricle is normal size. The right ventricular systolic function is normal. Atria Left atrium is mildly dilated. The right atrium size is normal. Aortic Valve Aortic valve leaflets are mildly thickened. No aortic regurgitation is present. There is no aortic valvular stenosis. Mitral Valve The mitral valve is normal in structure. Trace mitral regurgitation. No evidence of mitral valve stenosis. Tricuspid Valve The tricuspid valve is normal in structure. There is trace to mild tricuspid regurgitation. The right atrial pressure is estimated at 10 mmHg. There is moderate pulmonary hypertension with an estimated PAP of 57mmHg. Pulmonic Valve The pulmonary valve is normal in structure. Mild pulmonic regurgitation. [address] [address] 2 D/M-MODE ECHOCARDIOGRAM Name: ALEC REDDY Room #: 405-P [facility] IN [facility]#: [id number] Admission: 02/20/17 Attend Phys: Chidi Garcia, Discharge: Date of : 49 Date of Service: 02/23/17 0920 Report #: [id number] Great Vessels Aortic root is dilated at 4.0cm. The ascending aorta is borderline dilated. IVC is dilated and collapses <50% with inspiration. Pericardium There is no pericardial effusion. <Conclusion> The left ventricle is normal size. Mild concentric left ventricular hypertrophy. Left ventricular systolic function is normal. Grade II - pseudonormal filling dynamics. The right ventricle is normal size. Left atrium is mildly dilated. There is no aortic valvular stenosis. Trace mitral regurgitation. There is trace to mild tricuspid regurgitation. The right atrial pressure is estimated at 10 mmHg. There is moderate pulmonary hypertension with an estimated PAP of 57mmHg. <ELECTRONICALLY SIGNED> By: Michel Scott MD 02/23/17919 9 9 Michel Scott MD /INF
--- NOTE | ~2017-02-20 | HC ---
[facility] [place] [address] CONSULTATION Name: ALEC REDDY Room #: 405-P [facility] IN .R.#: [id number] Admission: 02/20/17 Attend Phys: Chidi Garcia MD Discharge: Date of : 49 Report #: [id number] THIS REPORT FOR: //name// CC: Chidi Hopsonore Harris DATE OF SERVICE: 02/20/2017 REASON FOR CONSULTATION: Right groin pain (recurrent). HISTORY OF PRESENT ILLNESS: This is a 71-year-old male patient known to me from prior evaluation both in the office and from a recent hospitalization. The patient has been treated for a right groin abscess for which he was recently hospitalized after the area was drained at the bedside in the office by Dr. Cesar Farfan. The patient was hospitalized and underwent wound care and received IV antibiotic therapy. He was eventually dismissed from the hospital with resolution of most of his symptoms of right groin pain and back pain. The patient was dismissed home on oral antibiotics, which he finished. Two days after finishing the medication, he was seen again by Infectious Disease for worsening symptoms and was replaced on antibiotics. He has had increased drainage from the right groin. He was initially evaluated by me in the office for right groin pain. He has had difficulty with his pain over the past couple of years and over the past 4-5 months, it has significantly worsened. The patient had been seen by Dr. Darren Noonan with the pain management service. The patient underwent an MRI, which revealed arthritis in his back. He was then referred to Orthopedic Surgery (Dr. Ar Jordan) and underwent numerous other evaluations including ultrasound and CT. The studies were negative for an abdominal hernia; however, MRI of the pelvis to evaluate the patient for a sports hernia showed a hyperintense signal in the right inguinal canal with fat herniation in both inguinal canals. An unhealed fracture of the right pubic symphysis showed bone marrow edema extending into the junction of the superior pubic rami. Reactive edema was seen at the adductor aponeurosis, partially related to the pubic fracture. The patient developed drainage, which prompted my referring him to Dr. Cesar Farfan. PAST MEDICAL HISTORY: Includes coronary artery disease, status post coronary artery bypass graft; atrial flutter, hypertension, hyperlipidemia, hemorrhoids, hypercholesterolemia. PAST SURGICAL HISTORY: Includes coronary artery bypass graft in 2007. He has also undergone transurethral resection of the bladder, lithotripsy, atrial ablation, and right groin abscess drainage, both at the bedside and in the operating room recently. [address] [address] CONSULTATION Name: ALEC REDDY Room #: 405-P [facility] IN ..#: [id number] Admission: 02/20/17 Attend Phys: Chidi Garcia MD Discharge: Date of : 49 Report #: [id number] MEDICATIONS: Valium, Percocet, Flagyl, Cipro, Multaq, torsemide, MiraLax, Zestril, vitamin D3, Coreg, Lipitor, Xarelto, fish oil, and Restoril (please see the electronic medical record for dosing details). ALLERGIES: No known drug allergies. FAMILY HISTORY: Significant for hypertension and heart disease in his father and mother had cancer. SOCIAL HISTORY: The patient denies use of tobacco or illicit drugs. He drinks alcohol socially. He is and accompanied by his . REVIEW OF SYSTEMS: As per history of present illness. In addition, GENERAL: The patient reports no fever, but has had difficulty with chills. Denies unintentional weight loss. HEENT: Denies changes in taste, vision, hearing, or smell. RESPIRATORY: Denies shortness of breath, COPD or asthma. CARDIOVASCULAR: Denies chest pain or palpitations. GASTROINTESTINAL: Denies abdominal pain, nausea, or vomiting. GENITOURINARY: Worsened right groin drainage, bilateral fat containing inguinal hernias and possible/probable sports hernia on the right. NEUROLOGIC: Denies headaches, numbness or tingling. PSYCHIATRIC: Denies depression, anxiety or suicidal ideations. SKIN AND INTEGUMENTARY: Denies new skin lesions, rashes, or moles. ENDOCRINE: Denies polydipsia, polyuria, heat or cold intolerance. HEMATOLOGIC: Reports easy bleeding and bruising on Xarelto. All other review of systems is negative. PHYSICAL EXAMINATION: VITAL SIGNS: Temperature 98.8, blood pressure 119/63, pulse 90, respirations 16. GENERAL: This is a 71-year-old -[place] male patient in no acute distress, although he appears uncomfortable. He is accompanied by his . HEENT: Atraumatic and normocephalic. NECK: Supple. No appreciable lymphadenopathy. Trachea midline. CHEST: Clear bilaterally. CARDIOVASCULAR: Regular rate and rhythm. ABDOMEN: Soft, nontender, nondistended. GENITOURINARY: Right groin drainage is present. There is no significant fluctuance; however, he does have right groin edema and fibrinous exudate in a transverse incision. NEUROLOGIC: Cranial nerves 2-12 grossly intact. PSYCHIATRIC: Normal mood and affect. SKIN AND INTEGUMENTARY: See above. [facility] [address] [place] [address] CONSULTATION Name: ALEC REDDY JR Room #: 405-P [facility] IN [facility]#: [id number] Admission: 02/20/17 Attend Phys: Chidi Garcia MD Discharge: Date of : 49 Report #: [id number] LABORATORY DATA: CBC shows a white blood cell count of 15.2, hemoglobin 9.5, hematocrit 29.1 and platelets 301 with 87% segmented neutrophils. His comprehensive metabolic profile shows a normal sodium, potassium 4.3, chloride 96, CO2 29, BUN 23, creatinine 1.2 and glucose 117 with normal liver function test. His lactate was 1.0. Urinalysis showed trace blood. RADIOLOGIC STUDIES: CT of the pelvis showed no discrete collections or definite findings for abscess. Fat was seen extending into the upper aspect of both inguinal canals. In addition, a small umbilical hernia was present with no evidence for obstruction. IMPRESSION AND PLAN: This is a 71-year-old male patient with the above listed comorbidities, who has worsened right groin pain after having undergone incision and drainage times 2 of abscesses of the mons pubis. He now presents with cellulitis as evidenced by the CT scan. He also has bilateral inguinal hernias and sports hernia on the right. Infectious Disease has been consulted. The patient would benefit from antibiotic coverage, to be determined by the infectious disease service. Should he develop an abscess, incision and drainage will be prudent. However, at this time, based on CT scan, this is not necessary. With continued drainage, would evaluate further with an ultrasound. Dr. Toney Ruvalcaba with the wound care service will be consulted for his assistants with aggressive local wound care. Once the infection has been eradicated, can consider repairing his hernias. The patient and expressed understanding of the plan. I sincerely appreciate the opportunity to participate in the care of this patient and will leave further recommendations and orders in the electronic medical record as appropriate. <ELECTRONICALLY SIGNED> By: Hector Castellanos MD, FACS 02/23/17 0843 0016 0208 Hector Castellanos MD, FACS /nt
--- NOTE | ~2017-02-20 | HC ---
[facility] [place] [address] CONSULTATION Name: ALEC REDDY JR Room #: 405-P ADM IN M.R.#: [id number] Admission: 02/20/17 Attend Phys: Chidi Garcia MD Discharge: Date of : 49 Report #: [id number] THIS REPORT FOR: //name// CC: Chidi Hopsonyoli Harris DATE OF SERVICE: 02/21/2017 INFECTIOUS DISEASE CONSULTATION ATTENDING PHYSICIAN: Chidi Garcia M.D. REASON FOR EVALUATION: Right inguinal deep infection. HISTORY OF PRESENT ILLNESS: Chart reviewed, the patient examined. This is a 71-year-old male with recent complicated history, who was admitted due to worsening focal area associated with right inguinal area. Over the course of the last month, he had ongoing issues with right groin abscess. He had undergone least 2 operative debridements and culture-proven polymicrobial growth with isolation of Pseudomonas in addition to some anaerobic gram negative. He had been on parenteral therapy and this was transitioned to oral. He received this 2-3 additional weeks. Upon discontinuation, he noted increasing pain associated with the pelvis, experiencing spasms and particularly the proximal right lower extremity. He has had some fevers. He admits to no anorexia. Weight has been stable. No significant pulmonary or gastrointestinal-related complaints. He was readmitted for progressive illness, pending surgical evaluation. He was started on broad spectrum therapy with vancomycin as well as with Zosyn. He is not encephalopathic. ALLERGIES: None known. MEDICATIONS: Include torsemide, atorvastatin, lisinopril, vancomycin, carvedilol and rivaroxaban. PAST MEDICAL HISTORY: He has hypertension. He has known coronary artery disease with previous aortocoronary bypass grafting, renal lithiasis, hyperlipidemia, history of aflutter with ablation and bilateral inguinal hernias. SOCIAL HISTORY: Nonsmoker. No ethanol. FAMILY HISTORY: Noncontributory. REVIEW OF SYSTEMS: As above. PHYSICAL EXAMINATION: [facility] [address] [place] [address] CONSULTATION Name: ALEC REDDY Room #: 405-P [facility] IN [facility]#: [id number] Admission: 02/20/17 Attend Phys: Chidi Garcia MD Discharge: Date of : 49 Report #: [id number] GENERAL: [id number] distress. He is not overtly toxic. He appears to be fairly well nourished, pleasant and cooperative. VITAL SIGNS: Temperature max 100.4, more recently 99.1; pulse 83, respirations 18 and blood pressure 100/61. SKIN: Warm, dry. No rashes. HEENT: Otherwise, unremarkable. NECK: Supple. LUNGS: Generally clear to auscultation. HEART: Regular. I do not appreciate a murmur. ABDOMEN: Soft. GENITOURINARY: There is some tenderness in the suprapubic region in the inguinal areas. Marked inflammatory changes noted localized to the right inguinal area. There is significant induration under it and the margins are exquisitely tender. RECTAL: Deferred. LAB AND X-RAY DATA: Electrolytes: Sodium 134, potassium 4.0, chloride 100, bicarbonate is 27, BUN 16, creatinine 1.1 and estimated GFR 60. CBC: White count 11.6, H and H 8.5 and 25.5 and platelets of 267,000. CT of the pelvis, nothing for abscess. Urinalysis unremarkable. Lactic acid 1.0 and albumin of 2.8. Total protein is 6.7. LFTs are unremarkable. Review of cultures from January 31, abscess, polymicrobial growth including Pseudomonas aeruginosa thought to be Streptococcus . ASSESSMENT AND PLAN: Right inguinal skin and soft tissue infection, although imaging does not suggest abscess, apparently clinically raises a question. We will continue empiric antimicrobial therapy. I think at some point, we will need additional surgical debridement. We will await their evaluation with isolation of polymicrobial. It certainly raises question of possible breech of testing. <ELECTRONICALLY SIGNED> By: Maurice Rivas MD 02/22/17 0738 0734 1003 Maurice Rivas MD /nt
[2017-02-20 13:39] VITALS: BP 119/63
[2017-02-20 15:00] LABS: HEMATOCRIT 29.1 % (42.0-52.0); HEMOGLOBIN 9.5 gm/dL (14.0-18.0); MCH 28.3 pg (26.0-34.0); MCHC 32.6 g/dL (28.0-37.0); MCV 86.9 fL (80.0-100.0); PLATELET COUNT 301 thou/uL (150-400); RBC 3.35 mil/uL (4.50-6.00); RDW 14.5 % (10.5-14.5); WBC 15.2 thou/uL (4.0-11.0)
[2017-02-20 15:03] LABS: MANUAL DIFF YES
[2017-02-20 15:08] LABS: CALCIUM 8.8 mg/dL (8.5-10.1); CREATININE 1.2 mg/dL (0.7-1.3); POTASSIUM 4.3 mmol/L (3.5-5.1)
[2017-02-20 15:13] LABS: ALBUMIN 2.8 g/dL (3.4-5.0); TOTAL BILIRUBIN 0.9 mg/dL (<0.1-1.0); TOTAL PROTEIN 6.7 g/dL (6.4-8.2)
[2017-02-20 15:33] LABS: ABSOLUTE NEUTROPHILS 13.4 thou/uL (1.4-8.2); TOTAL CELL COUNT 100
[2017-02-20 15:59] LABS: URINE BILIRUBIN NEGATIVE (Negative); URINE BLOOD TRACE (Negative); URINE COLOR YELLOW; URINE GLUCOSE-RANDOM* NEGATIVE (Negative); URINE KETONES NEGATIVE (Negative); URINE LEUKOCYTES-REFLEX NEGATIVE (Negative); URINE PROTEIN (DIPSTICK) NEGATIVE (Negative); URINE UROBILINOGEN 0.2 E.U./dl (0.2-1.0)
[2017-02-20 17:17] VITALS: BP 103/59
[2017-02-20 17:27] VITALS: BP 110/64
[2017-02-20 20:00] VITALS: BP 104/63
[2017-02-21 04:00] VITALS: BP 100/61
[2017-02-21 04:26] LABS: HEMATOCRIT 25.5 % (42.0-52.0); HEMOGLOBIN 8.5 gm/dL (14.0-18.0); MCH 28.8 pg (26.0-34.0); MCHC 33.2 g/dL (28.0-37.0); MCV 86.8 fL (80.0-100.0); RBC 2.94 mil/uL (4.50-6.00); RDW 14.7 % (10.5-14.5); WBC 11.6 thou/uL (4.0-11.0)
[2017-02-21 04:38] LABS: CALCIUM 8.4 mg/dL (8.5-10.1); CREATININE 1.1 mg/dL (0.7-1.3)
[2017-02-21 08:41] VITALS: BP 128/76
[2017-02-21 11:45] VITALS: BP 98/53
[2017-02-21 15:54] VITALS: BP 109/61
[2017-02-21 20:32] VITALS: BP 109/64
[2017-02-21 23:18] VITALS: BP 116/70
[2017-02-22 03:40] VITALS: BP 116/74
[2017-02-22 08:00] VITALS: BP 127/78
[2017-02-22 10:45] LABS: HEMATOCRIT 27.9 % (42.0-52.0); HEMOGLOBIN 9.1 gm/dL (14.0-18.0); MCH 28.4 pg (26.0-34.0); MCHC 32.6 g/dL (28.0-37.0); MCV 87.2 fL (80.0-100.0); RBC 3.2 mil/uL (4.50-6.00); RDW 14.6 % (10.5-14.5); WBC 14.6 thou/uL (4.0-11.0)
[2017-02-22 16:04] VITALS: BP 109/64
[2017-02-22 20:00] VITALS: BP 110/56
[2017-02-23] VITALS (9 sets, daily range): BP systolic 96–127; BP diastolic 56–77
[2017-02-23 06:17] LABS: HEMATOCRIT 26.5 % (42.0-52.0); HEMOGLOBIN 8.9 gm/dL (14.0-18.0); MCHC 33.6 g/dL (28.0-37.0); MCV 86.1 fL (80.0-100.0); RBC 3.08 mil/uL (4.50-6.00); RDW 14.8 % (10.5-14.5); WBC 15.2 thou/uL (4.0-11.0)
[2017-02-24 04:35] VITALS: BP 106/64
[2017-02-24 05:44] LABS: HEMATOCRIT 28.3 % (42.0-52.0); HEMOGLOBIN 9.2 gm/dL (14.0-18.0); MCH 28.2 pg (26.0-34.0); MCHC 32.4 g/dL (28.0-37.0); RBC 3.25 mil/uL (4.50-6.00); RDW 14.7 % (10.5-14.5); WBC 15.1 thou/uL (4.0-11.0)
[2017-02-24 07:20] VITALS: BP 118/64
[2017-02-24 15:20] VITALS: BP 91/57
[2017-02-24 19:49] VITALS: BP 112/70
[2017-02-25 04:34] VITALS: BP 119/65
[2017-02-25 05:20] LABS: HEMATOCRIT 25.8 % (42.0-52.0); HEMOGLOBIN 8.4 gm/dL (14.0-18.0); MCH 27.9 pg (26.0-34.0); MCHC 32.4 g/dL (28.0-37.0); MCV 86.1 fL (80.0-100.0); RDW 14.5 % (10.5-14.5); WBC 14.2 thou/uL (4.0-11.0)
[2017-02-25 05:45] LABS: CALCIUM 7.8 mg/dL (8.5-10.1); CREATININE 1.8 mg/dL (0.7-1.3); POTASSIUM 3.4 mmol/L (3.5-5.1)
[2017-02-25 08:00] VITALS: BP 131/73
[2017-02-25 11:07] LABS: MAGNESIUM 1.5 mg/dL (1.8-2.4)
[2017-02-25 16:00] VITALS: BP 108/65
[2017-02-25 20:00] VITALS: BP 119/55
[2017-02-26 03:55] LABS: HEMOGLOBIN 8.9 gm/dL (14.0-18.0); MCH 28.3 pg (26.0-34.0); MCHC 33.1 g/dL (28.0-37.0); MCV 85.5 fL (80.0-100.0); RBC 3.16 mil/uL (4.50-6.00); RDW 14.6 % (10.5-14.5); WBC 18.6 thou/uL (4.0-11.0)
[2017-02-26 04:00] VITALS: BP 132/72
[2017-02-26 04:05] LABS: CALCIUM 8.3 mg/dL (8.5-10.1); CREATININE 1.8 mg/dL (0.7-1.3); MAGNESIUM 1.4 mg/dL (1.8-2.4); POTASSIUM 3.4 mmol/L (3.5-5.1)
[2017-02-26 08:00] VITALS: BP 123/69
[2017-02-26 16:00] VITALS: BP 111/66
[2017-02-26 18:46] LABS: MAGNESIUM 1.5 mg/dL (1.8-2.4); POTASSIUM 3.5 mmol/L (3.5-5.1)
[2017-02-26 20:00] VITALS: BP 141/86
[2017-02-27 04:00] VITALS: BP 156/94
[2017-02-27 04:40] LABS: CALCIUM 8.5 mg/dL (8.5-10.1); CREATININE 1.7 mg/dL (0.7-1.3); MAGNESIUM 1.6 mg/dL (1.8-2.4); POTASSIUM 3.8 mmol/L (3.5-5.1)
[2017-02-27 08:32] VITALS: BP 152/80
[2017-02-27 15:52] LABS: URINE BILIRUBIN NEGATIVE (Negative); URINE BLOOD 1+ (Negative); URINE COLOR YELLOW; URINE GLUCOSE-RANDOM* NEGATIVE (Negative); URINE KETONES NEGATIVE (Negative); URINE LEUKOCYTES-REFLEX NEGATIVE (Negative); URINE PROTEIN (DIPSTICK) TRACE (Negative); URINE UROBILINOGEN 0.2 E.U./dl (0.2-1.0)
[2017-02-27 16:04] LABS: CASTS None Seen /LPF (None Seen); CRYSTALS None Seen /LPF (None Seen); SQUAMOUS None Seen /LPF (0-3); URINE RBC 0-2 Rare /HPF (0-2)
[2017-02-27 16:05] LABS: URINE WBC-REFLEX None Seen /HPF (0-5)
[2017-02-27 17:08] VITALS: BP 122/70
[2017-02-27 17:26] VITALS: BP 122/70
[2017-02-27 20:00] VITALS: BP 136/84
[2017-02-28 03:41] VITALS: BP 115/69
[2017-02-28 05:18] LABS: HEMATOCRIT 26.6 % (42.0-52.0); HEMOGLOBIN 8.8 gm/dL (14.0-18.0); MCH 28.5 pg (26.0-34.0); MCHC 33.1 g/dL (28.0-37.0); PLATELET COUNT 357 thou/uL (150-400); RBC 3.09 mil/uL (4.50-6.00); RDW 15.1 % (10.5-14.5); WBC 24.4 thou/uL (4.0-11.0)
[2017-02-28 05:28] LABS: CALCIUM 8.2 mg/dL (8.5-10.1); CREATININE 1.7 mg/dL (0.7-1.3); POTASSIUM 3.7 mmol/L (3.5-5.1)
[2017-02-28 05:57] LABS: MANUAL DIFF YES
[2017-02-28 07:00] LABS: ABSOLUTE NEUTROPHILS 21.5 thou/uL (1.4-8.2); TOTAL CELL COUNT 100
[2017-02-28 07:54] VITALS: BP 106/70
[2017-02-28 18:10] VITALS: BP 122/65
[2017-02-28 19:34] VITALS: BP 148/78
[2017-03-01 06:31] LABS: HEMATOCRIT 26.1 % (42.0-52.0); HEMOGLOBIN 8.6 gm/dL (14.0-18.0); MCH 28.4 pg (26.0-34.0); MCHC 32.8 g/dL (28.0-37.0); MCV 86.8 fL (80.0-100.0); RBC 3.01 mil/uL (4.50-6.00); RDW 14.9 % (10.5-14.5); WBC 21.9 thou/uL (4.0-11.0)
[2017-03-01 06:34] VITALS: BP 108/65
[2017-03-01 06:39] LABS: CALCIUM 8.3 mg/dL (8.5-10.1); CREATININE 1.7 mg/dL (0.7-1.3); POTASSIUM 3.6 mmol/L (3.5-5.1)
[2017-03-01 07:35] VITALS: BP 109/60
[2017-03-01 16:00] VITALS: BP 115/58
[2017-03-01 19:05] VITALS: BP 103/54
[2017-03-02 05:05] VITALS: BP 100/57
[2017-03-02 05:45] LABS: HEMATOCRIT 22.7 % (42.0-52.0); HEMOGLOBIN 7.4 gm/dL (14.0-18.0); MCH 27.9 pg (26.0-34.0); MCHC 32.7 g/dL (28.0-37.0); MCV 85.5 fL (80.0-100.0); PLATELET COUNT 293 thou/uL (150-400); RBC 2.65 mil/uL (4.50-6.00); RDW 14.8 % (10.5-14.5); WBC 23.8 thou/uL (4.0-11.0)
[2017-03-02 05:48] LABS: MANUAL DIFF YES
[2017-03-02 05:54] LABS: CALCIUM 7.4 mg/dL (8.5-10.1); CREATININE 1.6 mg/dL (0.7-1.3); POTASSIUM 3.4 mmol/L (3.5-5.1)
[2017-03-02 07:55] VITALS: BP 123/70
[2017-03-02 09:25] LABS: ABSOLUTE NEUTROPHILS 20.9 thou/uL (1.4-8.2); PLATELET ESTIMATE NORMAL; TOTAL CELL COUNT 100
[2017-03-02 16:02] VITALS: BP 120/69
[2017-03-02 20:00] VITALS: BP 140/89
[2017-03-02 21:45] LABS: MAGNESIUM 1.8 mg/dL (1.8-2.4)
[2017-03-02 23:12] VITALS: BP 128/58
[2017-03-03 05:09] VITALS: BP 113/73
[2017-03-03 08:00] VITALS: BP 140/77
[2017-03-03 16:00] VITALS: BP 141/74
[2017-03-03 20:00] VITALS: BP 140/72
== END 2017-03-03 22:30 | disposition short-term general hospital (02) | DRG 853 ==
LOC: ER 13:37 → 4N 15:57 → EROBS 15:57 → 4N 17:28 → EROBS 17:28 → 4N 17:44
PROVIDERS: Emergency Medicine; Hospitalist; Internal Medicine; Nurse Practitioner Family; Specialist; Surgery
PROC: 0KBM0ZZ Excision of Perineum Muscle, Open Approach (ICD-10-PCS; principal; 2017-02-23)
PROC: 02HV33Z Insertion of Infusion Device into Superior Vena Cava, Percutaneous Approach (ICD-10-PCS; 2017-02-27)
PROC: B548ZZA Ultrasonography of Superior Vena Cava, Guidance (ICD-10-PCS; 2017-02-27)
DX: A41.9 Sepsis, unspecified organism (principal); E43 Unspecified severe protein-calorie malnutrition; L03.314 Cellulitis of groin; E87.1 Hypo-osmolality and hyponatremia; I48.92 Unspecified atrial flutter; L02.214 Cutaneous abscess of groin; N17.9 Acute kidney failure, unspecified; I25.10 Atherosclerotic heart disease of native coronary artery without angina pectoris; I10 Essential (primary) hypertension; E78.5 Hyperlipidemia, unspecified; E83.42 Hypomagnesemia; K40.90 Unilateral inguinal hernia, without obstruction or gangrene, not specified as recurrent; R19.7 Diarrhea, unspecified; I48.0 Paroxysmal atrial fibrillation; Z87.891 Personal history of nicotine dependence; Z68.27 Body mass index [BMI] 27.0-27.9, adult; Z95.1 Presence of aortocoronary bypass graft; Z82.49 Family history of ischemic heart disease and other diseases of the circulatory system; Z80.9 Family history of malignant neoplasm, unspecified
CPT/HCPCS: 10091; 27000; 50010; 50101; 50386; 50403; 62110; 62900; 70005